=== PATIENT | female | born 1975 | race Caucasian/White ===

== ENCOUNTER 2025-07-10 10:12 | Emergency (ER) | payer BC, SELFPAY ==
--- NOTE | ~2025-07-10 | CT_ITS ---
CT abdomen pelvis w con Clinical History: RLQ pain . Comparison: None Technique: Axial images lung bases to symphysis pubis 100 mL Omnipaque 350 Coronal, sagittal reformats CT images acquired with automatic exposure control for dose reduction DLP: 643 mGy-cm Findings: Lung bases: Clear. Visualized heart and pericardium: Unremarkable. Liver: Steatosis. Enlarged. Gallbladder: Removed. Spleen: Unremarkable. Pancreas: Unremarkable. Adrenal glands: Unremarkable. Kidneys: Right kidney- No hydronephrosis. No renal stones. Left kidney- No hydronephrosis. No renal stones. Distal esophagus/stomach: Unremarkable. Small bowel loops: Normal caliber and wall thickness. Colon: Diverticula. Normal caliber and wall thickness. Normal RLQ appendix. Nodes: No enlarged nodes. Peritoneum: No ascites. No free air. Urinary bladder: Unremarkable. Uterus: Fibroid. Fluid within canal. Adnexa: No masses. Incompletely seen Bartholin's gland cyst right side. Bones: No acute bony abnormality. Soft tissues: Unremarkable. Aorta: No aneurysm or dissection. IVC: Unremarkable. Main portal vein/SMV/splenic vein: Patent. IMPRESSION: 1. No acute findings. 2. Fluid within endometrial canal and probable fibroid. Recommend transvaginal sonography. Reviewed, dictated and finalized at location [facility]. [facility]
[2025-07-10 10:12] VITALS: BP 141/83; PULSE 98; RESP 18; TEMP 36.9; O2SAT 100
--- NOTE | 2025-07-10 10:34 | ED_ITS ---
HPI - Abdominal Pain General Chief Complaint: Back Pain/Injury Stated Complaint: abdominal pain Time Seen by Provider: 07/10/25 10:26 Source: patient Mode of arrival: ambulatory Limitations: no limitations History of Present Illness HPI narrative: Patient is a 50-year-old female with right lower quadrant abdominal pain which started in the right lower back and came to the right CVA and now settled in the right lower quadrant and localizing to the right of the umbilicus. No nausea vomiting diarrhea. Pain is sharp in the right lower quadrant and other localized areas to the right lower quadrant. Patient currently on her menstrual cycle. MD elicited complaint: abdominal pain (Right) and flank pain (Right) Pertinent past history: other (Hypertension, diabetes 2) Onset (ago): day(s) (1) Pain Consistency: constant Location: RLQ Severity: moderate Pain scale (0-10): 5 Quality: sharp Radiation: RLQ, R flank and back (Right) Migration to: no migration Exacerbating factors: movement and other (Palpation) Relieving factors: movement Context: confirms other (Patient presents with right lower quadrant abdominal pain which started in the right lower back and now has settled in the right lower quadrant and right of the right of the umbilicus.) Associated symptoms: denies other symptoms Treatments prior to arrival: NSAIDs Related Data Hx Last Menstrual Period: Current Patient : No Home Medications ?Medication ?Instructions ?Recorded ?Confirmed ?Last Taken ?Type bupropion HCl 300 mg 24 hr tablet, mg PO 07/10/25 Unk nown History extended release escitalopram oxalate 20 mg tablet mg 07/10/25 Unknown History losartan 25 mg tablet mg 07/10/25 Unknown History tirzepatide 10 mg/0.5 mL mg subcut 07/10/25 Unknown History subcutaneous pen injector (Mounjaro) Allergies Allergy/AdvReac Type Severity Reaction Status Date / Time No Known Allergies Allergy Verified 07/10/25 10:27 Review of Systems 2 Review of Systems: All systems reviewed & are unremarkable except as noted in HPI and below Constitutional: Constitutional: Reports no additional constitutional complaints Eyes: Eyes: Reports no additional eye complaints ENT: Reports system reviewed and no additional complaints, except as documented Cardiovascular: Cardiovascular: Reports no additional cardiovascular complaints Respiratory: Respiratory: Reports no additional respiratory complaints Gastrointestinal: Gastrointestinal: Reports no additional gastrointestinal complaints Genitourinary: Genitourinary: Reports no additional female genitourinary complaints Musculoskeletal: Musculoskeletal: Reports no additional musculoskeletal complaints Integumentary/Breasts: Skin/Breast: Reports system reviewed and no additional complaints, except as docu Neurologic: Reports system reviewed and no additional complaints, except as documented Psychiatric: Psychiatric: Reports no additional psychiatric complaints Endocrine: Endocrine: Reports no additional endocrine complaints Hematologic/Lymphatic: Hematologic/Lymphatic: Reports no additional hematologic/lymphatic complaints Allergic/Immunologic: Allergic/Immunologic: Reports no additional allergic/immunologic complaints Exam 2 Const: General: no acute distress Nutritional Appearance: well nourished Orientation/consciousness: patient oriented x3 Limitations: no limitations HENMT: Head: normal to inspection Ears: external ears normal F amos/Nose/Sinus: Normal external nose present Eyes: Conjunctivae: conjunctivae normal Pupils: Equal, round and reactive pupils present EOM: EOMs intact bilaterally Neck: Neck: normal visual inspection, no lymphadenopathy and no meningeal signs Chest: Chest palpation & inspection: normal inspection of the chest Resp: Effort & Inspection: normal respiratory effort and not labored A uscultation: clear to auscultation bilaterally and no crackles Cardio: Rate: regular rate Rhythm: regular rhythm Heart sounds: no murmurs GI: Inspection: non-distended GI Palp: Yes Soft to palpation, Yes Tenderness to palpation present (GI), Yes Guarding due to palpation present (GI), No Rigid due to palpation, No Hernia present, No Palpable mass present and Yes Rebound tenderness present Auscultation: normal bowel sounds and Hypoactive bowel sounds present : General: Yes bladder normal to palpation Back/Spine/Pelvis: Back: no CVA tenderness Skin: General skin exam: normal color Rashes: no rashes Wounds: no wounds Neuro: General: patient oriented x3 Cranial nerves: Yes Nystagmus not present Extrem: General: normal to inspection Psych: Mental Status: mental status grossly normal Affect: normal affect Attitude: cooperative Course Vital Signs Vital signs: Vital Signs Temperature 36.9 C 07/10/25 10:12 Pulse Rate 98 07/10/25 10:12 Respiratory Rate 18 07/10/25 10:12 Blood Pressure 141/83 H 07/10/25 10:12 Pulse Oximetry 100 07/10/25 10:12 Oxygen Delivery Room Air 07/10/25 10:12 Temperature 36.9 C 07/10/25 10:12 Pulse Rate 88 07/10/25 12:24 Respiratory Rate 16 07/10/25 12:24 Blood Pressure 148/68 H 07/10/25 12:24 Pulse Oximetry 98 07/10/25 12:24 Oxygen Delivery Room Air 07/10/25 12:24 [facility] Narrative Medical decision making narrative: Patient is a 50-year-old female with right lower quadrant abdominal pain here for workup and evaluation. We will do a GI abdomen pain workup. Differential Diagnosis Differential Diagnosis: Appendicitis, cholecystitis Lab Data [facility] Lab Attestation statement: I personally reviewed the patient's lab results. 07/10/25 10:39 07/10/25 10:39 Labs: Lab Results 07/10/25 07/10/25 Range/Units 10:39 10:40 WBC 13.5 H (4.8-10.8) K/mm3 RBC 3.66 L (4.20-5.40) M/mm3 Hgb 10.3 L (12.0-15.0) g/dL Hct 31.9 L (35.0-49.0) % MCV 87.2 (78.0-102.0) fL MCH 28.1 (27.0-31.0) pg MCHC 32.3 (32-36) g/dL RDW 14.3 (11.6-14.4) % Plt Count 401 (150-420) K/mm3 MPV 9.3 (9.2-11.8) fl Immature Gran % (Auto) 0.5 H (0.0-0.0) % Neut % (Auto) 83.0 H (50.0-70.0) % Lymph % (Auto) 9.8 L (18.0-42.0) % Jasper % (Auto) 5.6 (2.0-11.0) % Eos % (Auto) 0.7 L (1.0-6.0) % Baso % (Auto) 0.4 (0.0-1.0) % Lymph # (Auto) 1.33 (1.10-4.50) K/mm3 Jasper # (Auto) 0.75 (0.10-0.90) K/mm3 Eos # (Auto) 0.10 (0.02-0.50) K/mm3 Baso # (Auto) 0.05 (0.00-0.10) K/mm3 Abs Immat Gran (auto) 0.07 H (0.00-0.00) K/mm3 Absolute Neuts (auto) 11.21 H (1.70-7.20) K/mm3 Absolute Nucleated RBC 0.00 (0.00-0.00) K/mm3 Nucleated RBC % 0.0 (0-0.0) % PT 11.4 (9.50-12.1) Seconds INR 1.0 APTT 28.1 (23.9-30.70) Sec Sodium 141 (137-145) mmol/L Potassium 3.7 (3.4-5.0) mmol/L Chloride 108 H (98-107) mmol/L Carbon Dioxide 22 (22-30) mmol/L Anion Gap 11 (4-12) mmol/L BUN 10 (7-17) mg/dL Creatinine 0.59 L (0.7-1.0) mg/dL Estim Creat Clear Calc 93 ml/min Estimated GFR > 60 (59 - ) Glucose 96 (65-110) mg/dL Calculated Osmolality 291 (285-295) mOsm/kg Calcium 8.8 (8.4-10.2) mg/dL Total Bilirubin 0.4 (0.2-1.3) mg/dL AST 33 (14-36) U/L ALT 21 (6-35) U/L Alkaline Phosphatase 76 (38-126) U/L Total Protein 7.5 (6.3-8.2) g/dL Albumin 4.4 (3.5-5.1) g/dL Lipase 65 (23-300) U/L Urine Color Dark red (Yellow) Urine Appearance Clear (Clear) Urine pH 5.5 (5.0-8.0) Ur Specific Radisson 1.025 H (1.010-1.020) Urine Protein 3+ H (Negative) Urine Glucose (UA) Negative (Negative) Urine Ketones Trace H (Negative) Ur Blood (Man) 3+ H (Negative) Urine Nitrate Positive H (Negative) Urine Bilirubin 1+ H (Negative) Urine Urobilinogen 1.0 (0.2-1.0) mg/dL Leukocyte Esterase Rfl 1+ H (Negative) CARMEN/UL Urine RBC >75 H (0-2) /hpf Urine WBC 4-6 H (0-3) /hpf Ur Squamous Epith Cells Few (Few) /hpf Urine Bacteria 1+ H (None) /hpf Urine Test Negative Imaging Data Attestation: I personally reviewed and interpreted this imaging study as follows: Radiologist's impression: ITS Impressions Abdomen/Pelvis CT 07/10/25 11:22 IMPRESSION: 1. No acute findings. 2. Fluid within endometrial canal and probable fibroid. Recommend transvaginal sonography. Patient was on her menstrual cycle and explains fluid in the endometrial canal at this time. Discharge Plan Discharge Clinical Impression: UTI (urinary tract infection) Qualifiers: Urinary tract infection type: acute cystitis Hematuria presence: with hematuria Qualified Code(s): N30.01 - Acute cystitis with hematuria Patient Disposition: Home Condition: Stable Instructions: Antibiotic Form, Urinary Tract Infection in Women (DC) Patient Language: Yoruba Prescriptions: New ciprofloxacin HCl [Cipro] 500 mg tablet 500 mg PO BID 7 Days Qty: 14 0RF No Action losartan 25 mg tablet escitalopram oxalate 20 mg tablet bupropion HCl 300 mg tablet extended release 24 hr PO Mounjaro 10 mg/0.5 mL pen injector SUBCUT Follow-up/Referrals: Cassie,Nallely Martinez MD [Primary Care Provider, Unknown] Time of Disposition: 11:43
[2025-07-10 10:44] LABS: Hematocrit 31.9 % (35.0-49.0); Hemoglobin 10.3 g/dL (12.0-15.0); Immature Granulocyte Percent A 0.5 % (0.0-0.0); Lymphocytes Absolute Auto 1.33 K/mm3 (1.10-4.50); Mean Corpuscular HGB Conc 32.3 g/dL (32-36); Mean Corpuscular Hemoglobin 28.1 pg (27.0-31.0); Mean Corpuscular Volume 87.2 fL (78.0-102.0); Nucleated Red Blood Cells Absolute Auto 0.00 K/mm3 (0.00-0.00); Nucleated Red Blood Cells Perc 0.0 % (0-0.0); Platelet Count Result 401 K/mm3 (150-420); Red Blood Count 3.66 M/mm3 (4.20-5.40); White Blood Count 13.5 K/mm3 (4.8-10.8)
[2025-07-10 10:45] LABS: Appearance Urine Clear (Clear); Glucose Urine UA Negative (Negative); Leukocyte Esterase Ur 1+ LEU/UL (Negative); Nitrate Urine Positive (Negative); Specific Grav Ur 1.025 (1.010-1.020)
[2025-07-10 10:47] LABS: Pregnancy On Board Control Positive
[2025-07-10 10:56] LABS: Add Urine Microscopic? YES
[2025-07-10 10:56] LABS: Alanine Aminotransferase 21 U/L (6-35); Albumin Level 4.4 g/dL (3.5-5.1); Alkaline Phosphatase 76 U/L (38-126); Anion Gap 11 mmol/L (4-12); Aspartate Amino Transferase 33 U/L (14-36); Bilirubin,Total 0.4 mg/dL (0.2-1.3); Blood Urea Nitrogen 10 mg/dL (7-17); Calcium 8.8 mg/dL (8.4-10.2); Carbon Dioxide 22 mmol/L (22-30); Chloride 108 mmol/L (98-107); Estimated CRCL calculation 93 ml/min; Estimated Glomerular Filt Rate > 60; Glucose 96 mg/dL (65-110); Lipase 65 U/L (23-300); Osmolality Calculated 291 mOsm/kg (285-295); Potassium 3.7 mmol/L (3.4-5.0); Sodium 141 mmol/L (137-145); Total Protein 7.5 g/dL (6.3-8.2)
[2025-07-10 11:00] LABS: INR 1.0; Partial Thromboplastin Time 28.1 Sec (23.9-30.70); Prothrombin Time 11.4 Seconds (9.50-12.1)
--- NOTE | 2025-07-10 11:00 | PC.NURSE ---
Pt to CT scanner with radiology transport.
--- NOTE | 2025-07-10 11:14 | PC.NURSE ---
Pt back in room from CT scanner.
[2025-07-10] MEDS: cefTRIAXone 1 GM in SODIUM CHLORIDE 0.9% IV 50 ML 100 ML IVPB (11:45)
--- OUTSIDE RECORDS SUMMARY | 2025-07-10 12:12 | XMS_ITS | Clinical Summary ---
Author Organization [facility] Address [facility] [place] [address] Care Team Providers Care Farm Instructor Name Role Phone Nallely Matthews MD Primary Care Provider [phone] Social History Tobacco Use Types Packs/Day Years Used Date Smoking Tobacco: Never Assessed Comments Unknown Sex and Gender Information Value Date Recorded Sex Assigned at Not on file Legal Sex Female 9:06 AM CDT Gender Identity Not on file Sexual Orientation Not on file Plan of Treatment Health Maintenance Due Date Last Done Comments Cervical Cancer Screening Pa p Smear (Age 30 to 64) Every 3 Years 1977 Colorectal Cancer Screening Colonoscopy (10 Years) 1977 Annual Physical 02/27/1980 Hepatitis C 1995 Hepatitis B Vaccines (1 of 3 - 19+ 3-dose series) 02/27/1996 Cervical Cancer Screening Pa p with HPV Testing (Age 30 to 64) Every 5 Years 2007 Cervical Cancer Screening wi th HPV 2007 Mammogram Screening 2017 DTaP, Tdap and Td Vaccines ( 2 - Td or Tdap) 01/30/2025 01/30/2015 COVID-19 Vaccine (2024-2 6 season) 2025 06/27/2022, 06/20/2021, 10/04/2020 Influenza Adult (#1) 2025 06/27/2022, 04/25/2022 Pneumococcal Vaccine: Pediatrics (0 to 5 Years) and At-Risk Patients (6 to 49 Years) Aged Out 06/25/2020 No longer eligible b ased on patient's age to complete this topic Hepatitis A Vaccines Aged Out No long er eligible based on patient's age to complete this topic Meningococcal B Vaccine Aged Out No l onger eligible based on patient's age to complete this topic Meningococcal Vaccine Aged Out No libia coretta eligible based on patient's age to complete this topic RSV Immunizations Under 20 Months Aged Out No longer eligible b ased on patient's age to complete this topic Insurance Care Teams Farm Instructor Relationship Specialty Start Date End Date Nallely Matthews MD [address] [place] [address] PCP - General FAMILY PRACTICE 04/19/24
[2025-07-10 12:18] VITALS: PULSE 70; RESP 16; O2SAT 97
[2025-07-10 12:24] VITALS: BP 148/68; PULSE 88; RESP 16; O2SAT 98
--- OUTSIDE RECORDS SUMMARY | 2025-07-10 13:09 | XMS_ITS | Clinical Summary ---
Author Organization [facility] Address [facility] [place] [address] Care Team Providers Care Eeg Technician Name Role Phone Nallely Matthews MD Primary Care Provider [phone]- [phone] Social History Tobacco Use Types Packs/Day Years [...] to complete this topic Insurance Care Teams Eeg Technician Relationship Specialty Start Date End Date Nallely Matthews MD [address] [place] [address] PCP - General FAMILY PRACTICE 04/19/24
== END 2025-07-10 12:27 | disposition home or self-care (01) ==
PROVIDERS: Emergency Provider Emergency Medicine; PCP Family Medicine
DX: N30.01 Acute cystitis with hematuria (principal); E11.9 Type 2 diabetes mellitus without complications; I10 Essential (primary) hypertension; Z79.899 Other long term (current) drug therapy
CPT/HCPCS: 36415; 74177; 80053; 81001; 81025; 83690; 85025; 85610; 85730; 87086; 96365; 99284; J0696; Q9967